=== PATIENT | male | born 1975 | race Caucasian/White ===

== ENCOUNTER 2016-08-10 09:16 | Emergency (ER) | payer OTHER ==
--- NOTE | 2016-08-10 09:33 | ED Physician Documentation ---
General Adult - HISTORIAN Historian: patient - HPI Chief Complaint: Skin Rash Onset: days ago Timing: still present Further Comments: yes (has) - ROS CONST: no problems. denies: fever - PAST HX Past History: none Other History: diabetes Type 2, other (shizophrenia) Surgeries/Procedures: none Allergies/Adverse Reactions: Allergies Allergy/AdvReac Type Severity Reaction Status Date / Time No Known Allergies Allergy Verified 11/12/15 21:25 - SOCIAL HX Smoking History: less than 1 pack/day Alcohol Use: none Drug Use: none - FAMILY HX Family History: Yes (DM) - VITAL SIGNS Vital Signs: Vital Signs Temp Pulse Resp BP Pulse Ox 148/85 11/13/15 00:16 - REVIEWED ASSESSMENTS Nursing Assessment Reviewed: Yes Vitals Reviewed: Yes General Adult Physical Exam - PHYSICAL EXAM GENERAL APPEARANCE: mild distress EENT: no signs of dehydration NECK: normal inspection RESPIRATORY: no resp distress, chest non-tender. No: wheezes, rales, rhonchi CVS: reg rate & rhythm, heart sounds normal, equal pulses, murmur (grade 2/6) EXTREMITIES: other (4cm erythema to the right elbow, mild swelling) NEURO: oriented X3, mood/affect nml Discharge Clincal Impression: Cellulitis Qualifiers: Site of cellulitis: extremity Site of cellulitis of extremity: upper extremity Laterality: right Qualified Code(s): L03.113 - Cellulitis of right upper limb Additional Instructions: Take doxycycline twice a day. Watch for increasing swelling to the elbow area. Watch blood sugars closely. Condition: Stable Disposition: HOME, SELF-CARE Decision to Admit: NO Date of Decison to Admit: 08/10/16 Decision Time: 09:48
[2016-08-10 09:56] VITALS: BP 159/93
== END 2016-08-10 09:48 | disposition home or self-care (01) ==
LOC: ED 09:16
DX: L03.113 Cellulitis of right upper limb (principal); F17.210 Nicotine dependence, cigarettes, uncomplicated
CPT/HCPCS: 99283

== ENCOUNTER 2016-10-11 20:39 | Emergency (ER) | payer OTHER ==
[2016-10-11] MEDS: Lidocaine 1% 5ml(IM or SUTURE)(PAIN CLINIC) IJ ONE (21:17)
[2016-10-11] MEDS: cefTRIAXone SODIUM 1 GM VIAL IM ONE (21:17)
--- NOTE | 2016-10-11 21:35 | ED Physician Documentation ---
General Adult - HISTORIAN Historian: patient, spouse - HPI Stated Complaint: puncture wound Chief Complaint: General Adult Onset: other (Tuesday) Timing: worse Further Comments: yes (41 year old male patient presents with complaints of left foot pain. Patient states he stepped on a jon nail. Patient reports being out of metformin and lisinopril since Tuesday. Rates pain /) - ROS CONST: no problems EYES/ENT: none CVS/RESP: none GI/: none MS/SKIN/LYMPH: none NEURO/PSYCH: difficulty walking (due to pain). denies: headache, dizziness - PAST HX Past History: hypertension Other History: diabetes Type 2, other (sleep apnea, depression) Allergies/Adverse Reactions: Allergies Allergy/AdvReac Type Severity Reaction Status Date / Time No Known Allergies Allergy Verified 10/11/16 21:00 Home Medications: Ambulatory Orders Medication Instructions Recorded Quetiapine Fumarate [Seroquel] 50 mg PO DAILY 08/10/16 Metformin HCl [Glucophage] 500 mg PO BID 10/11/16 PARoxetine HCL [Paxil] 20 mg PO DAILY 10/11/16 Prazosin HCl [Minipress] 2 mg PO DAILY 10/11/16 Sulfamethoxazole/Trimethoprim 1 each PO BID #20 tab 10/11/16 [Bactrim Ds] - SOCIAL HX Smoking History: chew - FAMILY HX Family History: No - VITAL SIGNS Vital Signs: Vital Signs Temp Pulse Resp BP Pulse Ox 99.4 F 86 20 137/86 95 10/11/16 21:07 10/11/16 21:07 10/11/16 21:07 10/11/16 21:07 10/11/16 21:07 - REVIEWED ASSESSMENTS Nursing Assessment Reviewed: Yes Vitals Reviewed: Yes Progress - Progress Progress: Soaked left foot and cleaned black dirt, now able to assess erythema area. Discussed non-compliance of medications. Patient states he has refills at the pharmacy, but he has not picked them up. Instructed patient to pickle solution maker medications and restart his lisinopril and metformin. Patient report history of "murmur", has never had cardiology work up. Patient medicated for pain with stadol and toradol IM. Discharged with [place] 2 tabs for home Reviewed discharge instructions with patient and , verbalized understanding. Strongly encouraged follow up with Dr Brooks for re-evaluation, explained if foot did not improve patient would need IV antibiotics. Will start bactrim DS bid x 10 days, prn [place] for pain. ED Results Lab/Radiology - Orders Orders: ED Orders Category Date Time Status Butorphanol Tartrate [Stadol] Med 10/11/16 21:32 Once 1 mg IM NOW ONE HYDROcodone /APAP 5/325 [[place] 5/325] Med 10/11/16 21:32 Once 2 each PO NOW ONE Ketorolac Tromethamine [Toradol] Med 10/11/16 21:32 Once 60 mg IM NOW ONE Lidocaine 1% 5ml(IM or SUTURE) [Xylocaine] Med 10/11/16 21:02 Discontinued 50 mg IJ NOW ONE cefTRIAXone SODIUM [Rocephin] Med 10/11/16 21:02 Discontinued 1 gm IM NOW ONE General Adult Physical Exam - PHYSICAL EXAM GENERAL APPEARANCE: moderate distress EENT: eye inspection normal, EOM palsy RESPIRATORY: no resp distress, chest non-tender, breath sounds normal CVS: reg rate & rhythm, equal pulses, no murmur, no gallop, PMI nml, no JVD, no friction rub, murmur (aortic 4/6) ABDOMEN: soft, no organomegaly, normal bowel sounds, no abdominal bruit, no distension, other (morbid obesity) SKIN: normal color, warm/dry, NR, INT, PAL, DR EXTREMITIES: non-tender, normal range of motion, no evidence of injury, no edema , other (left foot - foot black and dirty; soaked and cleaned - planter aspect with puncture wound noted, erythema 5 x 8 cm area, no drainage from puncture, very tender to light touch; ) NEURO: oriented X3, CN's nml as tested, motor nml, sensation nml, mood/affect nml Discharge Clincal Impression: Cellulitis of foot Prescriptions: Sulfamethoxazole/Trimethoprim [Bactrim Ds] 1 each PO BID #20 tab Referrals: Primary Doctor,No [Primary Care Provider] - 2 Days Additional Instructions: Clean the wound twice a day with hibiclens and rinse with water clean away any scabbed area Cover with non-adherent bandage if able. clean up helper banquet ALL of your prescription in the morning - restart your lisinopril and metformin; start your antibiotic Make a follow up appointment with Dr Brooks for Tuesday. You need a referral to Cardiology. Home Medications: Ambulatory Orders Quetiapine Fumarate [Seroquel] 50 mg PO DAILY 08/10/16 Metformin HCl [Glucophage] 500 mg PO BID 10/11/16 PARoxetine HCL [Paxil] 20 mg PO DAILY 10/11/16 Prazosin HCl [Minipress] 2 mg PO DAILY 10/11/16 Sulfamethoxazole/Trimethoprim [Bactrim Ds] 1 each PO BID #20 tab 10/11/16 Condition: Stable Disposition: 01 HOME, SELF-CARE Decision to Admit: NO Decision Time: 21:33
[2016-10-11] MEDS: BUTORPHANOL TARTRATE 2 MG/ML VIAL IM ONE (21:50)
[2016-10-11] MEDS: DIPH,PERTUSS(ACELL),TET VAC/PF 0.5 ML DISP.SYRIN IM ONE (21:51)
[2016-10-11] MEDS: HYDROcodone /APAP 5/325 1 EACH TABLET PO ONE (21:51)
[2016-10-11] MEDS: KETOROLAC TROMETHAMINE 60 MG/2 ML VIAL IM ONE (21:51)
[2016-10-11 22:02] VITALS: BP 123/72
== END 2016-10-11 22:01 | disposition home or self-care (01) ==
LOC: ED 20:39
DX: L03.116 Cellulitis of left lower limb (principal)
CPT/HCPCS: 90715; A9270; J0595; J0696; J1885; 90471; 96372; 99283

== ENCOUNTER 2016-12-18 10:10 | Emergency (ER) | payer OTHER ==
--- NOTE | 2016-12-18 10:55 | ED Physician Documentation ---
General Adult - HISTORIAN Historian: patient - HPI Chief Complaint: General Adult Onset: days ago (4 days) Timing: still present Further Comments: yes (Patient states that he burned in bucal surface of left lower gum area. Seems to be getting worse.) - ROS CONST: no problems. denies: fever, chills - PAST HX Past History: hypertension, other (sleep apnea, schizophrenia) Other History: diabetes Type 2, other (schizophrenia) Surgeries/Procedures: none Immunizations: tetanus Allergies/Adverse Reactions: Allergies Allergy/AdvReac Type Severity Reaction Status Date / Time No Known Allergies Allergy Verified 12/18/16 10:52 Home Medications: Ambulatory Orders Medication Instructions Recorded Quetiapine Fumarate [Seroquel] 50 mg PO DAILY 08/10/16 Metformin HCl [Glucophage] 500 mg PO BID 10/11/16 PARoxetine HCL [Paxil] 20 mg PO DAILY 10/11/16 Prazosin HCl [Minipress] 2 mg PO DAILY 10/11/16 - SOCIAL HX Smoking History: non-smoker, chew Alcohol Use: none Drug Use: none - FAMILY HX Family History: Yes - VITAL SIGNS Vital Signs: Vital Signs Temp Pulse Resp BP Pulse Ox 123/72 10/11/16 22:01 - REVIEWED ASSESSMENTS Nursing Assessment Reviewed: Yes Vitals Reviewed: Yes General Adult Physical Exam - PHYSICAL EXAM GENERAL APPEARANCE: mild distress EENT: eye inspection normal, pharynx normal, other (patient has an area associated with left lower canaine tooth with exposure of the tooth 3-4mm below gum line, mild erythema noted.) RESPIRATORY: no resp distress, chest non-tender, breath sounds normal. No: wheezes, rales, rhonchi CVS: reg rate & rhythm, equal pulses, murmur (garde 2/6) NEURO: oriented X3, mood/affect nml, cognition normal Discharge Clincal Impression: First degree burn of buccal mucosa Prescriptions: Penicillin V Potassium [Pen V K] 500 mg PO QID #40 tablet Referrals: Primary Doctor,No [Primary Care Provider] - 2 Days Additional Instructions: Rinse mouth with salt water several times a day. Contact a dentist for further treatment. Take penicillin as directed. Home Medications: Ambulatory Orders Quetiapine Fumarate [Seroquel] 50 mg PO DAILY 08/10/16 Metformin HCl [Glucophage] 500 mg PO BID 10/11/16 PARoxetine HCL [Paxil] 20 mg PO DAILY 10/11/16 Prazosin HCl [Minipress] 2 mg PO DAILY 10/11/16 Condition: Stable Decision to Admit: NO Date of Decison to Admit: 12/18/16 Decision Time: 10:48
[2016-12-18 11:02] VITALS: BP 120/75
== END 2016-12-18 11:01 ==
LOC: ED 10:10
DX: T28.0XXA Burn of mouth and pharynx, initial encounter (principal); X10.1XXA Contact with hot food, initial encounter; Y93.9 Activity, unspecified; Y99.9 Unspecified external cause status
CPT/HCPCS: 99283

== ENCOUNTER 2018-01-21 11:52 | Inpatient (IN) | payer OTHER ==
--- NOTE | 2018-01-21 11:54 | ED Physician Documentation ---
General Adult - HISTORIAN Historian: patient - HPI Stated Complaint: dental pain Chief Complaint: Dental Pain Onset: days ago (1) Timing: still present Severity: mild Further Comments: yes (He states he has had dental pain the past but today he was biting down on a sucker and broke his tooth. The pain is what brings him to the ER. He did take Ibuprofen at home (he is not sure of the dose) He states he also has a sore on his right toe that has "been there for a while I was going to see my Dr about it next week but you all can just check it out" He also states his PCP started him on a new med for his cholesterol a few weeks ago and he has had Nausea and vomiting since. Denies a fever. He also reports for the last week or more "I just dont feel good" . He states he had felt dizzy. He reports he has pain in his tooth .) Last known Well Code/Unknown Code: Unknown - ROS CONST: no problems CVS/RESP: denies: chest pain, shortness of breath, cough GI/: nausea, diarrhea MS/SKIN/LYMPH: denies: calf pain, neck pain, joint pain, leg swelling, rash NEURO/PSYCH: headache, dizziness. denies: fainting, difficulty walking - PAST HX Past History: hypertension, other (DM 2 ) Surgeries/Procedures: none Immunizations: UTD Allergies/Adverse Reactions: Allergies Allergy/AdvReac Type Severity Reaction Status Date / Time No Known Allergies Allergy Verified 01/21/18 12:13 Home Medications: Ambulatory Orders Medication Instructions Recorded Atorvastatin Calcium 20 mg PO D 01/21/18 Gabapentin 300 mg PO TID 01/21/18 Glimepiride [Amaryl] 4 mg PO AM 01/21/18 LORazepam [Ativan] 1 mg PO HS 01/21/18 Lisinopril/Hydrochlorothiazide 1 tab PO D 01/21/18 [Zestoretic] - SOCIAL HX Smoking History: cigarettes Alcohol Use: none Drug Use: none - FAMILY HX Family History: No - VITAL SIGNS Vital Signs: Vital Signs Temp Pulse Resp BP Pulse Ox 120/75 12/18/16 11:00 - REVIEWED ASSESSMENTS Nursing Assessment Reviewed: Yes Vitals Reviewed: Yes Progress - Progress Progress: 1315: Discussed case with Dr Philippe who would like to admit pt for fluids and monitor labs repeat in am. Pt is agreeable. DG 1335: Walking in hallway to Xray . No dizziness. No complaints DG ED Results Lab/Radiology - Radiology Radiology Impressions: 3 views of the right foot Clinical history: Right 3rd digit pain Findings: No acute fracture dislocation is identified. Alignment is normal. Impression: Negative Electronically signed on Jan 21, 2018 12:59:40 PM CDT by: Rodolfo De Oliveira HISTORY: 42-year-old male with wheezing and cough. COMPARISON: None available. TECHNIQUE: PA and lateral views of the chest were performed. FINDINGS: No pneumothorax, consolidative infiltrates, pleural effusions, or pulmonary edema. There may be calcified granulomas in the left [id number] lung. Azygos lobe is incidentally noted. The heart is not enlarged. IMPRESSION: No acute cardiopulmonary process identified. Electronically signed on Jan 21, 2018 1:49:13 PM CDT by: Velasquez Hylton General Adult Physical Exam - PHYSICAL EXAM GENERAL APPEARANCE: no distress EENT: eye inspection normal, ENT inspection normal, pharynx normal, no signs of dehydration NECK: normal inspection RESPIRATORY: no resp distress, chest non-tender, wheezes (RUL SANTO ) CVS: reg rate & rhythm, heart sounds normal, equal pulses, no murmur ABDOMEN: soft, normal bowel sounds, no distension, non-tender BACK: normal inspection SKIN: warm/dry, normal color, other (area on 3rd toe right foot darker than skin color 2 cm round area on tip of toe. No drainge. No loss of sensation ) EXTREMITIES: non-tender, normal range of motion, no evidence of injury, no edema NEURO: oriented X3, CN's nml as tested, motor nml, sensation nml, mood/affect nml, cognition normal Discharge Clincal Impression: Acute kidney failure Qualifiers: Acute renal failure type: unspecified Qualified Code(s): N17.9 - Acute kidney failure, unspecified Referrals: Primary Doctor,No [Primary Care Provider] - 2 Days Condition: Fair Disposition: ADMITTED INPATIENT Decision to Admit: [id number] Date of Decison to Admit: 01/21/18 Decision Time: 13:15
[2018-01-21] MEDS ORDERED: 0.9 % SODIUM CHLORIDE 1,000 ML IV SCH (12:30)
[2018-01-21] MEDS ORDERED: 0.9 % SODIUM CHLORIDE 1,000 ML IV ONE ×4 (12:31→23:13)
[2018-01-21 12:35] LABS: BASOPHILS % 0.6 (0.0-1.5); EOSINOPHILS % 3.5 % (0.0-6.8); MEAN CORPUSCULAR HEMOGLOBIN 30.1 pg (28.0-34.0); MEAN CORPUSCULAR VOLUME 87.2 fl (80.0-100.0); MONOCYTES % 4.5 % (0.0-11.0); NEUTROPHILS # 6.9 # k/uL (1.4-7.7)
[2018-01-21 12:58] LABS: eGFR (African) 20; eGFR (Non-African) 17
[2018-01-21] MEDS ORDERED: ACETAMINOPHEN 500 MG TABLET PO ONE (13:29)
[2018-01-21] MEDS: 0.9 % SODIUM CHLORIDE 1,000 ML IV SCH ×3 (14:12→23:16)
--- NOTE | 2018-01-21 17:21 | History and Physical Report ---
History of Present Illnes - History of Present Illness Reason for Visit: Acute renal failure History of Present Illness: 42 year old male who has had intractable nausea/vomiting and diarrhea for the past three days. He has no ill contacts. He has not been able to keep anything down. He broke a tooth today and that was his reason fro coming to the ER. He was hypotensive, and labs showed him to be in acute renal failure with a BUN/CR of 62/4.2. Previous renal labs were all normal. He is admitted for fluid resuscitation, and we will check labs with likely need for at least a couple nights in the hospital for correction of renal failure. - Past Medical History Cardiac: HTN, Hyperlipidemia, Other (PAD) Pulmonary: COPD Gastrointestinal: denies: Other Hepatobiliary: denies: Other Psych: Bipolar, Schizophrenia Musculoskeletal: Chronic low back pain Rheumatologic: denies: Fibromyalgia Infectious Disease: denies: Other ENT: Other (Dental caries) Renal/: Acute renal failure Endocrine: Diabetes, Other (Morbid obesity) Dermatology: denies: Other - Past Surgical History Past Surgical History: Other (ORIF, left ankle, right shoulder arthroscopy) - Past Social History Smoke: 1 pack per day Alcohol: Occassional Drugs: None (Denies) Lives: With Family Domestic Violence: Negative - Health Maintenance Health Maintenance: Cholesterol Influenza Vaccine: Current for this Influenza Season Pneumonia Vaccine: Yes Resuscitation Status: Full Code - Unable to Obtain History Unable to Obtain: No Review of Systems - Review of Systems Constitutional: Weakness, Malaise. negative: Fever, Chills Eyes: negative: pain ENT: Mouth Pain (due to recently broken tooth). negative: Ear Pain, Ear Discharge Respiratory: negative: Cough, Dry, Shortness of Breath Cardiovascular: negative: Chest Pain Gastrointestinal: Nausea, Vomiting, Diarrhea. negative: Abdominal Pain Genitourinary: negative: Dysuria Musculoskeletal: negative: Neck Pain, Shoulder Pain Skin: negative: Rash, Lesions Neurological: Weakness, Incoordination, Confusion - Medications/Allergies Allergies/Adverse Reactions: Allergies Allergy/AdvReac Type Severity Reaction Status Date / Time No Known Allergies Allergy Verified 01/21/18 12:13 Home Medications: Home Medications Atorvastatin Calcium 20 mg PO D 01/21/18 Gabapentin 300 mg PO TID 01/21/18 Glimepiride [Amaryl] 4 mg PO AM 01/21/18 LORazepam [Ativan] 1 mg PO HS 01/21/18 Lisinopril/Hydrochlorothiazide [Zestoretic] 1 tab PO D 01/21/18 Current Inpatient Medications: Current Inpatient Medications Miscellaneous (Chem Sticks) 1 each CHEMX3 [facility] Exam - Exam Vital Signs: Vital Signs (72 hours) 01/21/18 14:55 Pulse Rate [ 112 H Right Pulse ox] Respiratory 24 Rate Blood Pressure 75/45 [Left Arm] General: Alert, Oriented to Person, Oriented to Place, Oriented to Time, Cooperative, Mild distress, Obese HEENT: Atraumatic, PERRLA, Poor Dentition Neck: No: Stridor, Rigidity Lungs: Clear to auscultation, Normal air movement, Speaks full Sentences. No: Respiratory Distress Cardiovascular: Regular rate, Normal S1, Normal S2 Murmur: No: Systolic Murmur Murmur Location: No: [place] Abdomen: Normal bowel sounds, Soft, No tenderness Genitourinary: No: Right Inguinal Hernia, Left Inguinal Hernia Male Genitourinary: No: Other Female Genitourinary: No: Other Integumentary: Normal, [place], Warm, Other (open ulcer on right distal third toe) Extremities: No clubbing, No cyanosis, Other (scar from recent ORIF or right ankle) Neurological: Normal speech, Strength Equal Bilat Psych/Mental Status: Mental status NL Assessment/Plan - Assessment/Plan (1) Diabetes mellitus Status: Acute Current Visit: Yes Qualifiers: Diabetes mellitus type: type 2 Diabetes mellitus complication status: with circulatory complication Diabetes mellitus complication detail: with peripheral angiopathy without gangrene Assessment: Check AC/HS accuchecks (2) Obesity Status: Acute Current Visit: Yes Qualifiers: Obesity type: due to excess calories Obesity classification: adult class 3 (BMI >= 40) Serious obesity comorbidity presence: unspecified whether serious comorbidity present Body mass index: BMI 50.0-59.9 Qualified Code(s): E66.01 - Morbid (severe) obesity due to excess calories; Z68.43 - Body mass index (BMI) 50-59.9 , adult; Z68.43 - Body mass index (BMI) 50-59.9 , adult; Z68.43 - Body mass index (BMI) 50-59.9 , adult; Z68.43 - Body mass index (BMI) 50-59.9 , adult Assessment: Chronic (3) Dehydration Status: Acute Current Visit: Yes Assessment: Continue fluid resuscitation (4) Acute kidney failure Status: Acute Current Visit: Yes Qualifiers: Acute renal failure type: unspecified Qualified Code(s): N17.9 - Acute kidney failure, unspecified Assessment: Due to dehydration Plan: Continue fluid resuscitation Check labs in am VTE Assessment - RISK FACTOR SCORE VTE RISK FACTOR SCORES: AGE 40-60 YEARS, SMOKER - RISK VTE MODERATE RISK: SCORE OF 2 (RISK PROXIMAL DVT 2-4%) PROPHYAXIS NEEDED ( Started Lovenox)
[2018-01-21 17:28] VITALS: BMI 42.5
[2018-01-21] MEDS ORDERED: ACETAMINOPHEN WITH CODEINE 300MG/30MG TABLET PO PRN (17:43)
--- NOTE | 2018-01-21 18:22 | Diagnostic Imaging Report ---
KYLE TAYLOR [facility] [address] [facility] [address] [address] Report Submission Date: Jan 21, 2018 12:59:40 PM CDT Patient Study Name: NAYAN MORTENSEN Date: Jan 21, 2018 12:41:43 PM CDT Modality Type: DX Gender: M Description: LOWER EXTREMITY : 75 Institution: [facility] Physician: KYLE TAYLOR 3 views of the right foot Clinical history: Right 3rd digit pain Findings: No acute fracture dislocation is identified. Alignment is normal. Impression: Negative Electronically signed on Jan 21, 2018 12:59:40 PM CDT by: Rodolfo MULLER
--- NOTE | 2018-01-21 18:23 | Diagnostic Imaging Report ---
KYLE TAYLOR [facility] [address] [facility] [id number] Report Submission Date: Jan 21, 2018 1:49:13 PM CDT Patient Study Name: NAYAN MORTENSEN Date: Jan 21, 2018 1:25:46 PM CDT Modality Type: DX Gender: M Description: CHEST : 75 Institution: [facility] Physician: KYLE TAYLOR HISTORY: 42-year-old male with wheezing and cough. COMPARISON: None available. TECHNIQUE: PA and lateral views of the chest were performed. FINDINGS: No pneumothorax, consolidative infiltrates, pleural effusions, or pulmonary edema. There may be calcified granulomas in the left [id number] lung. Azygos lobe is incidentally noted. The heart is not enlarged. IMPRESSION: No acute cardiopulmonary process identified. Electronically signed on Jan 21, 2018 1:49:13 PM CDT by: Velasquez MULLER
[2018-01-21] MEDS: ENOXAPARIN SODIUM 30 MG/0.3 ML DISP.SYRIN SQ SCH (18:42)
[2018-01-21] MEDS ORDERED: ACETAMINOPHEN WITH CODEINE 300MG/30MG TABLET PO ONE (19:54)
[2018-01-21] MEDS ORDERED: QUEtiapine FUMARATE 25 MG TABLET PO ONE (21:50)
[2018-01-21] MEDS: QUEtiapine FUMARATE 25 MG TABLET PO SCH (22:03)
[2018-01-21] MEDS ORDERED: HYDROcodone /APAP 5/325 1 EACH TABLET PO PRN (23:10)
[2018-01-21] MEDS: HYDROcodone /APAP 5/325 1 EACH TABLET PO PRN (23:21)
[2018-01-22] MEDS ORDERED: 0.9 % SODIUM CHLORIDE 1,000 ML IV ONE ×3 (03:58→19:12)
[2018-01-22] MEDS: 0.9 % SODIUM CHLORIDE 1,000 ML IV SCH ×3 (04:05→23:53)
[2018-01-22] MEDS: HYDROcodone /APAP 5/325 1 EACH TABLET PO PRN ×3 (07:29→20:10)
[2018-01-22 07:36] LABS: APPEARANCE,URINE CLEAR (CLEAR); COLOR,URINE YELLOW (YELLOW); OCCULT BLOOD,URINE NEGATIVE (NEGATIVE); UROBILINOGEN URINE 0.2 Eu (0.2-1.0)
[2018-01-22] MEDS: GLIMEPIRIDE 2 MG TABLET PO SCH (07:40)
[2018-01-22] MEDS: GABAPENTIN 100 MG CAPSULE PO SCH ×4 (07:44→17:41)
[2018-01-22 12:12] LABS: MEAN CORPUSCULAR HEMOGLOBIN 29.7 pg (28.0-34.0); MEAN CORPUSCULAR VOLUME 88.7 fl (80.0-100.0)
[2018-01-22 12:26] LABS: eGFR (African) 47; eGFR (Non-African) 39
--- NOTE | 2018-01-22 17:04 | Inpatient Progress Note ---
Subjective - Required Recertification Statement I anticipate X number of days because-include discharge plan: 1 - Review of Systems Events since last encounter: Addi' s renal function has improved. He continues to eat a remarkable amount of food, however despite this his blood sugars are farily well controlled. General: Denies: Chills, Night Sweats, Fatigue HEENT: Denies: Head Aches Pulmonary: Denies: Dyspnea, Cough Cardiovascular: Denies: Chest Pain Gastrointestinal: Denies: Nausea, Vomiting Genitourinary: Denies: Dysuria Musculoskeletal: Denies: Neck Pain, Shoulder Pain Neurological: Weakness. Denies: Incoordination Objective - Exam Vitals and I&O: Vital Signs Temp 98.2 F 01/22/18 10:00 Pulse 92 H 01/22/18 02:00 Resp 18 01/22/18 10:00 BP 116/50 01/22/18 10:00 Pulse Ox 97 01/22/18 10:00 Intake & Output 01/21/18 01/22/18 01/22/18 23:59 11:59 23:59 Intake Total 1160 3600 1440 Balance 1160 3600 1440 Weight 154.221 kg Intake: Oral 1160 1200 1440 Other 2400 Other: Voiding Method Toilet Toilet # Voids 3 2 General: Alert, Oriented to Person, Oriented to Place, Oriented to Time, Obese HEENT: Atraumatic, PERRLA, EOMI Neck: Supple Lungs: Clear to auscultation, Normal air movement. No: Respiratory Distress Cardiovascular: Regular rate, Normal S1, Normal S2 Abdomen: No: Normal bowel sounds Extremities: No clubbing, No cyanosis, No edema Skin: Normal, [place], Warm Neurological: Normal gait, Normal speech Psych/Mental Status: Mental status NL - Results Results: Laboratory Results WBC 6.90 K/ul (4.00-12.00) 01/22/18 12:09 RBC 3.82 M/ul (3.90-5.20) L 01/22/18 12:09 Hgb 11.4 g/dL (12.0-18.0) L 01/22/18 12:09 Hct 33.9 % (37.0-53.0) L 01/22/18 12:09 MCV 88.7 fl (80.0-100.0) 01/22/18 12:09 MCH 29.7 pg (28.0-34.0) 01/22/18 12:09 MCHC 33.5 g/dL (30.0-36.0) 01/22/18 12:09 RDW 14.1 % (11.3-14.3) 01/22/18 12:09 Plt Count 150 K/mm3 (130-400) 01/22/18 12:09 Neut % (Auto) 70.1 % (39.0-79.0) 01/21/18 12:30 Lymph % (Auto) 20.4 % (16.0-50.0) 01/21/18 12:30 Barron % (Auto) 4.5 % (0.0-11.0) 01/21/18 12:30 Eos % (Auto) 3.5 % (0.0-6.8) 01/21/18 12:30 Baso % (Auto) 0.6 (0.0-1.5) 01/21/18 12:30 Neut # (Auto) 6.9 # k/uL (1.4-7.7) 01/21/18 12:30 Lymph # (Auto) 2.0 # k/uL (0.6-4.0) 01/21/18 12:30 Barron # (Auto) 0.4 # k/uL (0.0-0.9) 01/21/18 12:30 Eos # (Auto) 0.3 # k/uL (0.0-0.6) 01/21/18 12:30 Baso # (Auto) 0.1 # k/uL (0.0-0.5) 01/21/18 12:30 Reactive Lymphs % 1.0 % (0.0-5.0) 01/21/18 12:30 Reactive Lymphs # 0.1 # k/uL (0.0-0.8) 01/21/18 12:30 Sodium 140 mmol/L (136-145) 01/22/18 12:08 Potassium 4.4 mmol/L (3.5-5.1) 01/22/18 12:08 Chloride 109 mmol/L (98-107) H 01/22/18 12:08 Carbon Dioxide 22 mmol/L (22-30) 01/22/18 12:08 BUN 55 mg/dL (9-20) H 01/22/18 12:08 Creatinine 2.00 mg/dL (0.66-1.25) H 01/22/18 12:08 Estimated Creat Clear 104 01/22/18 12:08 Est GFR ( Amer) 47 (60-) L 01/22/18 12:08 Est GFR (Non-Af Amer) 39 (60-) L 01/22/18 12:08 Glucose 142 mg/dL (74-106) H 01/22/18 12:08 Calcium 8.7 mg/dL (8.4-10.2) 01/22/18 12:08 Total Bilirubin < 0.1 mg/dL (0.2-1.3) L 01/22/18 12:08 AST 33 U/L (15-46) 01/22/18 12:08 ALT 36 U/L (13-69) 01/22/18 12:08 Alkaline Phosphatase 64 U/L (38-126) 01/22/18 12:08 NT-Pro-B Natriuret Pep 126.4 pg/mL (15.0-125.0) H 01/21/18 12:30 Total Protein 6.5 g/dL (6.3-8.2) 01/22/18 12:08 Albumin 3.7 g/dL (3.5-5.0) 01/22/18 12:08 Urine Color Yellow (YELLOW) 01/21/18 Unknown Urine Appearance Clear (CLEAR) 01/21/18 Unknown Urine pH 5.0 (5.0 - 8.0) 01/21/18 Unknown Ur Specific [place] >=1.030 (1.010-1.030) H 01/21/18 Unknown Urine Protein 1+ mg/dL (NEGATIVE) H 01/21/18 Unknown Urine Ketones Negative mg/dL (NEGATIVE) 01/21/18 Unknown Urine Occult Blood Negative (NEGATIVE) 01/21/18 Unknown Urine Nitrite Negative (NEGATIVE) 01/21/18 Unknown Urine Bilirubin 2+ (NEGATIVE) H 01/21/18 Unknown Urine Urobilinogen 0.2 Eu (0.2-1.0) 01/21/18 Unknown Ur Leukocyte Esterase Negative (NEGATIVE) 01/21/18 Unknown Urine Glucose Negative mg/dL (NEGATIVE) 01/21/18 Unknown Ethyl Alcohol < 10.0 mg/dL (0.0-10.0) 01/21/18 12:30 Assessment/Plan - Assessment/Plan (1) Diabetes mellitus Status: Acute Current Visit: Yes Qualifiers: Diabetes mellitus type: type 2 Diabetes mellitus complication status: with circulatory complication Diabetes mellitus complication detail: with peripheral angiopathy without gangrene Assessment: Surprisingly good control (2) Obesity Status: Acute Current Visit: Yes Qualifiers: Obesity type: due to excess calories Obesity classification: adult class 3 (BMI >= 40) Serious obesity comorbidity presence: unspecified whether serious comorbidity present Body mass index: BMI 50.0-59.9 Qualified Code(s): E66.01 - Morbid (severe) obesity due to excess calories; Z68.43 - Body mass index (BMI) 50-59.9 , adult; Z68.43 - Body mass index (BMI) 50-59.9 , adult; Z68.43 - Body mass index (BMI) 50-59.9 , adult; Z68.43 - Body mass index (BMI) 50-59.9 , adult Assessment: Chronic, worsened by excess calories (3) Dehydration Status: Acute Current Visit: Yes Assessment: Improved (4) Acute kidney failure Status: Acute Current Visit: Yes Qualifiers: Acute renal failure type: unspecified Qualified Code(s): N17.9 - Acute kidney failure, unspecified Assessment: BUN/creatinine coming down Plan: Continue IVF Recheck BMP in the am, I suspect he will be able to go home in the morning.
[2018-01-22] MEDS: ENOXAPARIN SODIUM 30 MG/0.3 ML DISP.SYRIN SQ SCH (17:41)
[2018-01-22] MEDS: QUEtiapine FUMARATE 25 MG TABLET PO SCH (20:09)
[2018-01-22] MEDS ORDERED: QUEtiapine FUMARATE 25 MG TABLET PO SCH (21:00)
[2018-01-23] MEDS: HYDROcodone /APAP 5/325 1 EACH TABLET PO PRN ×3 (02:20→13:30)
[2018-01-23] MEDS ORDERED: 0.9 % SODIUM CHLORIDE 1,000 ML IV ONE (04:07)
[2018-01-23] MEDS: 0.9 % SODIUM CHLORIDE 1,000 ML IV SCH (04:23)
[2018-01-23] MEDS: GLIMEPIRIDE 2 MG TABLET PO SCH (07:25)
[2018-01-23 07:50] LABS: eGFR (African) > 60; eGFR (Non-African) > 60
[2018-01-23] MEDS: GABAPENTIN 100 MG CAPSULE PO SCH ×2 (07:57→13:04)
[2018-01-23 13:30] VITALS: BP 140/71
--- NOTE | 2018-01-23 15:19 | Discharge Summary ---
DATE OF ADMISSION: January 21, 2018 DATE OF DISCHARGE: January 23, 2018 DIAGNOSES ON THIS HOSPITALIZATION: 1. Acute renal failure. 2. Diabetes mellitus type 2. 3. Obesity. 4. Hypotension. SUMMARIZATION OF ADMISSION HISTORY AND PHYSICAL: This is a 42-year-old male who presented to the emergency department after feeling just generally very weak. He had broken a tooth prior to coming in; however, when labs were done in the emergency department, he was noted to be in acute renal failure with a BUN of 62 and creatinine of 4.2. As a result, he was admitted for fluid resuscitation and monitoring of his renal function. HOSPITAL COURSE: He was admitted. We started him on a fairly aggressive fluid resuscitation. He did eat actually a remarkable amount of food. He would order a pizza at least every day from [employer] and eat the entire thing in conjunction with all the food that he was given through the hospital. He was by discharge date, eating and drinking significantly better, as the fluids were discontinued because he was beginning to have a little bit of edema. His labs had actually improved remarkably from a BUN of 62 and a creatinine of 4.2 to a BUN of 30 and a creatinine of 1.10. He was discharged home with continuation of all of his regular medications. He was really strongly cautioned to increase his fluid intake to at least 64 ounces per day. He will follow up with his primary care physician in the next week. YOHANA
== END 2018-01-23 13:50 | disposition home or self-care (01) | DRG 684 ==
LOC: ED 11:52 → SOUTH 14:28
PROVIDERS: ADMIT Family Medicine; ATTEND Family Medicine
DX: N17.9 Acute kidney failure, unspecified (principal); E11.9 Type 2 diabetes mellitus without complications; I95.9 Hypotension, unspecified; E66.9 Obesity, unspecified
CPT/HCPCS: 71046; 73630; 80048; 80053; 80320; 81002; 83880; 85025; 85027; 93005; A9270; J1650; J7030; 96365; 96366; 99222; 99232; 99238; G0480; S1016

== ENCOUNTER 2018-02-05 06:05 | Emergency (ER) | payer OTHER ==
--- NOTE | 2018-02-05 06:38 | ED Physician Documentation ---
General Adult - HISTORIAN Historian: patient - VITAL SIGNS Vital Signs: Vital Signs Temp Pulse Resp BP Pulse Ox 140/71 01/23/18 13:29 <Lena Tapia - Last Filed: 02/05/18 06:38> - HPI Chief Complaint: General Adult Further Comments: yes (0700 Assumed care of patient who presents with complaints of 10/10 abdominal pain and diarrhea for the past 3 days. Patient assisted to bathroom became light headed and placed back in bed prior to my arrival. Lab pending, 1st Liter NS infusing. Patient awake, alert, pink, warm and dry. Denies any fever or chills. Old records reviewed.) - ROS CONST: recent illness (started 02/04/18 around 1400 after drinking "mountain dew slushy") EYES/ENT: none CVS/RESP: shortness of breath. denies: chest pain GI/: abdominal pain, nausea, diarrhea. denies: vomiting MS/SKIN/LYMPH: other (left foot pain) NEURO/PSYCH: headache, dizziness. denies: fainting, tingling, numbness, difficulty walking, difficulty with speech, anxiety, depression - PAST HX Past History: hypertension, other (HLD; January 2017 ARF - Cr 4.2) Other History: diabetes Type 2 - SOCIAL HX Smoking History: cigarettes - FAMILY HX Family History: No - VITAL SIGNS Vital Signs: Vital Signs Temp Pulse Resp BP Pulse Ox 97.8 F 108 H 20 77/36 93 02/05/18 06:06 02/05/18 06:06 02/05/18 06:06 02/05/18 06:06 02/05/18 06:06 - REVIEWED ASSESSMENTS Nursing Assessment Reviewed: Yes Vitals Reviewed: Yes <RYAN DAI - Last Filed: 02/05/18 12:23> - PAST HX Allergies/Adverse Reactions: Allergies Allergy/AdvReac Type Severity Reaction Status Date / Time norepinephrine Allergy Verified 02/05/18 08:57 Home Medications: Ambulatory Orders Medication Instructions Recorded Atorvastatin Calcium 20 mg PO D 01/21/18 Gabapentin 300 mg PO TID 01/21/18 Glimepiride [Amaryl] 4 mg PO AM 01/21/18 LORazepam [Ativan] 1 mg PO HS 01/21/18 Lisinopril/Hydrochlorothiazide 1 tab PO D 01/21/18 [Zestoretic] Progress - Progress Progress: Old records reviewed. Patient was admitted to [facility] in January 2018 for dehydration and ARF, CR 4.2; left AMA, has not followed up with primary care. Unable to complete troponin at this time, lab cartridges . Troponin sent out. Patient's weight 360 pounds. Over the weight limit for CT table. Start levophed drip for hypotension; HR down to 45-50, junctional rhythm; levophed stopped. Dopamine started. 08 Call to [facility] - reviewed case with Dr Carrillo. Will transfer to ER at [facility] stat for CT. EMS out on calls and transfer to [facility]. 0810 Request for [facility] helicopter - 35 min ETA; Air Vac checked for response time. Continuing to titrate Dopamine up for BP. 0835 Afib on monitor 130-150; patient remains awake, alert, pink, warm and dry. Called family on his cell phone. 0846 EKG #3 - Atrial Fib, rate 150 0900 No vasopressin or phenylephrine available for IV drip. Will not start epi at this time with significant Anion gap. 0920 [facility] at bedside. Will need blood cultures on arrival. - EKG/XRAY/CT EKG: rhythm (0722 Sinus arrhymia) - Additional EKG/XRAY/Consults EKG #2: rhythm (0745 after levophed - junctional rhythm on monitor; EKG with SR ) <RYAN DAI - Last Filed: 02/05/18 12:23> ED Results Lab/Radiology - Lab Results Lab Results: Lab Results 02/05/18 02/05/18 02/05/18 07:00 07:00 07:00 WBC 16.60 K/ul H K/ul (4.00-12.00) RBC 5.02 M/ul M/ul (3.90-5.20) Hgb 15.3 g/dL g/dL (12.0-18.0) Hct 45.3 % % (37.0-53.0) MCV 90.3 fl fl (80.0-100.0) MCH 30.6 pg pg (28.0-34.0) MCHC 33.9 g/dL g/dL (30.0-36.0) RDW 14.1 % % (11.3-14.3) Plt Count 319 K/mm3 K/mm3 (130-400) Neut % (Auto) 78.8 % % (39.0-79.0) Lymph % (Auto) 16.5 % % (16.0-50.0) [place] % (Auto) 3.3 % % (0.0-11.0) Eos % (Auto) 0.2 % % (0.0-6.8) Baso % (Auto) 0.5 (0.0-1.5) Neut # (Auto) 13.1 # k/uL H # k/uL (1.4-7.7) Lymph # (Auto) 2.7 # k/uL # k/uL (0.6-4.0) [place] # (Auto) 0.5 # k/uL # k/uL (0.0-0.9) Eos # (Auto) 0.0 # k/uL # k/uL (0.0-0.6) Baso # (Auto) 0.1 # k/uL # k/uL (0.0-0.5) Reactive Lymphs % 0.8 % % (0.0-5.0) Reactive Lymphs # 0.1 # k/uL # k/uL (0.0-0.8) Sodium 138 mmol/L mmol/L (136-145) Potassium 3.9 mmol/L mmol/L (3.5-5.1) Chloride 90 mmol/L L mmol/L (98-107) Carbon Dioxide 22 mmol/L mmol/L (22-30) BUN 54 mg/dL H mg/dL (9-20) Creatinine 8.40 mg/dL H mg/dL (0.66-1.25) Estimated Creat Clear 24 Est GFR ( Amer) 9 L (60 - ) Est GFR (Non-Af Amer) 7 L (60 - ) Glucose 299 mg/dL H mg/dL (74-106) Lactate 6.2 U/L H U/L (0.7-2.1) Calcium 11.6 mg/dL H mg/dL (8.4-10.2) Total Bilirubin 0.6 mg/dL mg/dL (0.2-1.3) AST 22 U/L U/L (15-46) ALT 28 U/L U/L (13-69) Alkaline Phosphatase 62 U/L U/L (38-126) Total Protein 8.7 g/dL H g/dL (6.3-8.2) Albumin 5.2 g/dL H g/dL (3.5-5.0) Ethyl Alcohol < 10.0 mg/dL mg/dL (0.0-10.0) - Radiology Radiology Impressions: AP chest CLINICAL HISTORY: Chest pain. FINDINGS: Examination of the chest single AP view with comparison to examination 2017 demonstrates patient be rotated. Lungs are hypoventilated but otherwise clear. Cardiovascular and mediastinal silhouettes are grossly unchanged. IMPRESSION: Rotated chest. Hypoventilation. Electronically signed on Feb 05, 2018 9:06:16 AM CDT by: Jamison Angel - Orders Orders: ED Orders Category Date Time Status Place IV Lock 1T Care 02/05/18 06:[address] IV Lock 1T Care 02/05/18 07:15 Active CHEST 1VIEW [RAD] Stat Exams 02/05/18 08:[address] ABD & PELVIS W/O CON Stat Exams 02/05/18 Ordered ALCOHOL MEDICAL USE ONLY Routine Lab 02/05/18 07:00 Completed CBC/PLATELET/DIFF Routine Lab 02/05/18 07:00 Completed CMP Routine Lab 02/05/18 07:00 Completed DRUG SCREEN URINE MEDICAL ONLY Routine Lab 02/05/18 Ordered LACTATE Stat Lab 02/05/18 07:00 Completed TROPONIN T (Joellen) Stat Lab 02/05/18 07:00 Received URINALYSIS Routine Lab 02/05/18 Ordered 0.9 % Sodium Chloride [Normal Saline] 1,000 ml Med 02/05/18 07:15 Discontinued IV NOW 0.9 % Sodium Chloride [Normal Saline] 1,000 ml Med 02/05/18 08:14 Discontinued IV NOW 0.9 % Sodium Chloride [Normal Saline] 1,000 ml Med 02/05/18 07:00 Ordered IV Q10H 0.9 % Sodium Chloride [Sodium Chloride] 250 ml Med 02/05/18 07:43 Discontinued IV .STK-MED Dopamine HCl in Dextrose 5 % [Dobutrex] Med 02/05/18 07:51 Discontinued 400 mg in 250 ml IV .STK-MED EKG WITH COMPARISON Stat Ther 02/05/18 07:20 Ordered <RYAN DAI - Last Filed: 02/05/18 12:23> General Adult Physical Exam - PHYSICAL EXAM GENERAL APPEARANCE: moderate distress EENT: eye inspection normal, pharynx normal, MREE, dry mucous membranes RESPIRATORY: no resp distress, chest non-tender, breath sounds normal CVS: reg rate & rhythm, heart sounds normal, equal pulses, no murmur, no gallop , PMI nml, no JVD, no friction rub ABDOMEN: soft, no organomegaly, normal bowel sounds, no abdominal bruit, no distension, tenderness (generalized), other (morbid obesity). No: McBurney's point tenderne, psoas, obturator sign BACK: normal inspection, no CVA tenderness SKIN: normal color, warm/dry, NR, INT, PAL, DR EXTREMITIES: non-tender, normal range of motion, no evidence of injury, no edema , J, ELECTRICIAN LOCOMOTIVE NEURO: oriented X3, motor nml, sensation nml, mood/affect nml <RYAN DAI - Last Filed: 02/05/18 12:23> Discharge <Lena Tapia - Last Filed: 02/05/18 06:38> Decision to Admit: NO Decision Time: 09:25 <RYAN DAI - Last Filed: 02/05/18 12:23> Clincal Impression: Hypotension Qualifiers: Hypotension type: hypotension due to hypovolemia Qualified Code(s): I95.89 - Other hypotension; E86.1 - Hypovolemia; E86.1 - Hypovolemia Sepsis Qualifiers: Sepsis type: sepsis due to unspecified organism Qualified Code(s): A41.9 - Sepsis, unspecified organism Abdominal pain Qualifiers: Abdominal location: generalized Qualified Code(s): R10.84 - Generalized abdominal pain Acute renal failure (ARF) Qualifiers: Acute renal failure type: unspecified Qualified Code(s): N17.9 - Acute kidney failure, unspecified Referrals: Abdirahman Philippe MD [Primary Care Provider] - 2 Days Condition: Critical Disposition: [facility] 234 BEDS AT THE [facility]
[2018-02-05] MEDS ORDERED: 0.9 % SODIUM CHLORIDE 1,000 ML IV ONE ×3 (06:54→08:14)
[2018-02-05] MEDS ORDERED: 0.9 % SODIUM CHLORIDE 1,000 ML IV SCH (07:00)
[2018-02-05 07:05] LABS: BASOPHILS % 0.5 (0.0-1.5); EOSINOPHILS % 0.2 % (0.0-6.8); MEAN CORPUSCULAR HEMOGLOBIN 30.6 pg (28.0-34.0); MEAN CORPUSCULAR VOLUME 90.3 fl (80.0-100.0); MONOCYTES % 3.3 % (0.0-11.0); NEUTROPHILS # 13.1 # k/uL (1.4-7.7)
[2018-02-05 07:20] LABS: eGFR (African) 9; eGFR (Non-African) 7
[2018-02-05] MEDS ORDERED: 0.9 % SODIUM CHLORIDE 250 ML IV ONE (07:43)
[2018-02-05] MEDS ORDERED: DOPAMINE HCL IN DEXTROSE IV ONE (07:51)
[2018-02-05] MEDS ORDERED: ONDANSETRON HCL/PF 4 MG/ 2ML VIAL ONE (08:30)
[2018-02-05] MEDS ORDERED: ONDANSETRON HCL/PF 4 MG/ 2ML VIAL IVP ONE (08:31)
[2018-02-05] MEDS ORDERED: MORPHINE SULFATE 2 MG/ML PREFILLED SYR ONE (08:44)
[2018-02-05] MEDS ORDERED: MORPHINE SULFATE 2 MG/ML PREFILLED SYR IVP ONE (08:45)
[2018-02-05 09:39] VITALS: BP 83/43
[2018-02-05 09:41] LABS: TROPONIN T 0.043 ng/mL (<0.010)
--- NOTE | 2018-02-05 10:57 | Diagnostic Imaging Report ---
RYAN DAI (JEWEL CORNER BRUSHING MACHINE OPERATOR) - ER [facility] [address] [facility] [address] [place], [place]. [address] Report Submission Date: Feb 05, 2018 9:06:16 AM CDT Patient Study Name: NAYAN MORTENSEN Date: Feb 05, 2018 8:28:53 AM CDT Modality Type: DX Gender: M Description: CHEST : 75 Institution: [facility] Physician: RYAN DAI (JEWEL CORNER BRUSHING MACHINE OPERATOR) - ER AP chest CLINICAL HISTORY: Chest pain. FINDINGS: Examination of the chest single AP view with comparison to examination 2017 demonstrates patient be rotated. Lungs are hypoventilated but otherwise clear. Cardiovascular and mediastinal silhouettes are grossly unchanged. IMPRESSION: Rotated chest. Hypoventilation. Electronically signed on Feb 05, 2018 9:06:16 AM CDT by: Jamison MULLER
[2018-02-06 07:40] LABS: ABG PH 7.38 (7.35-7.45)
[2018-02-06 07:41] LABS: ABG BASE EXCESS -0.4 (-2 - +2)
== END 2018-02-05 09:25 | disposition short-term general hospital (02) ==
LOC: ED 06:05
DX: I95.89 Other hypotension (principal); E86.1 Hypovolemia; A41.9 Sepsis, unspecified organism; R10.84 Generalized abdominal pain; N17.9 Acute kidney failure, unspecified
CPT/HCPCS: 36600; 71045; 80053; 80320; 82803; 83605; 84484; 85025; 93005; J1265; J2270; J2405; J7030; J7050; 96365; 96366; 96368; 96375; 99285; G0480; S1016

== ENCOUNTER 2018-09-05 09:12 | Emergency (ER) | payer OTHER ==
[2018-09-05] MEDS ORDERED: LACTATED RINGERS 1,000 ML IV ONE (09:24)
[2018-09-05] MEDS ORDERED: ONDANSETRON HCL/PF 4 MG/ 2ML VIAL IVP ONE (09:27)
--- NOTE | 2018-09-05 09:33 | ED Physician Documentation ---
General Adult - HISTORIAN Historian: patient - HPI Stated Complaint: nausea/vomiting Chief Complaint: General Adult Additional Information: Patient presents to ED with a 2 day history of nausea/vomiting since Tuesday afternoon. Patient states he picked up some boxed milk from the food pantry and had it with some pizza, then, 2 hours later he began to have vomiting. He has not been able to keep anything down since that time. Patient denies fever, chills, chest pain, shortness of breath. Admits to some dizziness. Hypotensive upon presentation. Onset: days ago (2) Timing: still present Severity: moderate - ROS CONST: denies: fever EYES/ENT: denies: problems with vision CVS/RESP: denies: chest pain, shortness of breath, cough GI/: vomiting, nausea. denies: abdominal pain, diarrhea MS/SKIN/LYMPH: denies: leg swelling NEURO/PSYCH: dizziness - PAST HX Past History: hypertension Other History: none, diabetes Type 2 Surgeries/Procedures: none Allergies/Adverse Reactions: Allergies Allergy/AdvReac Type Severity Reaction Status Date / Time norepinephrine Allergy Verified 09/05/18 09:40 Home Medications: Ambulatory Orders Medication Instructions Recorded Atorvastatin Calcium 20 mg PO D 01/21/18 Gabapentin 300 mg PO TID 01/21/18 Glimepiride [Amaryl] 4 mg PO AM 01/21/18 LORazepam [Ativan] 1 mg PO HS 01/21/18 Lisinopril/Hydrochlorothiazide 1 tab PO D 01/21/18 [Zestoretic] Quetiapine Fumarate [Seroquel] 1 tab PO HS 09/05/18 - SOCIAL HX Smoking History: cigarettes, greater than 1 pack/day Alcohol Use: none Drug Use: none - FAMILY HX Family History: No - VITAL SIGNS Vital Signs: Vital Signs Temp Pulse Resp BP Pulse Ox 83/43 02/05/18 09:25 - REVIEWED ASSESSMENTS Nursing Assessment Reviewed: Yes Vitals Reviewed: Yes Progress - Results/Orders Results/Orders: Influenza A/B- Negative - Progress Progress: 1015 Patient with GFR 9, discussed need for transfer to higher level of care. Patient requests Vera. Will give more fluid to stablize blood pressure. 1100 IV infiltrated. Will try to get another line. 1216 Discussed with [facility]. Waiting loss mitigation specialist back from Hospitalist 1229 Dr. Ladonna Wan refused direct admission due to BP, requests patient be sent through ER. 1238 Dr. Harris, ER physician will accept for transfer. 1240 Patient has not produced urine since in department. ED Results Lab/Radiology - Orders Orders: ED Orders Category Date Time Status Place IV Lock 1T Care 09/05/18 09:24 Ordered CBC/PLATELET/DIFF Routine Lab 09/05/18 Ordered CMP Routine Lab 09/05/18 Ordered LACTATED RINGERS @ 1,000 MLS/HR(1,000ml)(BOLUS) Med 09/05/18 09:24 Ordered Lactated Ringers [Ringers, Lactated] 1,000 ml IV Q1H Ondansetron HCl/Pf [Zofran] Med 09/05/18 09:27 Once 4 mg IVP NOW ONE General Adult Physical Exam - PHYSICAL EXAM GENERAL APPEARANCE: ill-appearing EENT: MERE NECK: supple RESPIRATORY: no resp distress, breath sounds normal CVS: reg rate & rhythm, heart sounds normal ABDOMEN: soft, non-tender BACK: normal inspection SKIN: pallor EXTREMITIES: non-tender, no edema NEURO: oriented X3, motor nml Discharge Clincal Impression: Acute renal failure Qualifiers: Acute renal failure type: unspecified Qualified Code(s): N17.9 - Acute kidney failure, unspecified Referrals: Abdirahman Philippe MD [Primary Care Provider] - 2 Days Disposition: [facility] Decision to Admit: [id number] Date of Decison to Admit: 09/05/18 Decision Time: 12:38
[2018-09-05 09:44] LABS: MEAN CORPUSCULAR HEMOGLOBIN 29.5 pg (28.0-34.0)
[2018-09-05 09:45] LABS: BASOPHILS % 1.1 (0.0-1.5); EOSINOPHILS % 2.1 % (0.0-6.8); MONOCYTES % 12.7 % (0.0-11.0); NEUTROPHILS # 9.7 # k/uL (1.4-7.7)
[2018-09-05] MEDS ORDERED: 0.9 % SODIUM CHLORIDE 1,000 ML IV ONE ×2 (10:27→13:04)
[2018-09-05 13:17] VITALS: BP 95/70
== END 2018-09-05 13:10 | disposition short-term general hospital (02) ==
LOC: ED 09:12
DX: N17.9 Acute kidney failure, unspecified (principal); Z72.0 Tobacco use
CPT/HCPCS: 36415; 80053; 85025; 87040; 87400; 96374; 99285; J2405; J7030; J7120; S1016

== ENCOUNTER 2019-01-16 23:22 | Emergency (ER) | payer OTHER ==
[2019-01-16] MEDS ORDERED: ONDANSETRON HCL/PF 4 MG/ 2ML VIAL IVP ONE (23:36)
[2019-01-16] MEDS ORDERED: 0.9 % SODIUM CHLORIDE 1,000 ML IV ONE (23:36)
--- NOTE | 2019-01-16 23:39 | ED Physician Documentation ---
General Adult - HISTORIAN Historian: patient - HPI Chief Complaint: General Adult Additional Information: Patient is a 43-year-old male that presents to the ER ambulatory with c/o nausea and vomiting today with weakness. He states that he developed cramps in his legs last night and frequent nausea with vomiting today- he has been sipping on sugary drinks today. Denies any fever or chills, no chest pain or SOA. Onset: days ago Timing: still present Severity: moderate Modifying Factors: Heat Exposure - ROS CONST: weakness EYES/ENT: none CVS/RESP: none GI/: vomiting, nausea MS/SKIN/LYMPH: back pain (chronic) NEURO/PSYCH: other (weakness) - PAST HX Past History: hypertension, renal disease Other History: diabetes Type 2 (with insulin) Surgeries/Procedures: other (right tib/fib) Immunizations: UTD Allergies/Adverse Reactions: Allergies Allergy/AdvReac Type Severity Reaction Status Date / Time norepinephrine Allergy Verified 01/17/19 00:27 Home Medications: Ambulatory Orders Medication Instructions Recorded RX: Atorvastatin Calcium 20 mg PO D 01/21/18 RX: Gabapentin 300 mg PO TID 01/21/18 RX: Glimepiride [Amaryl] 4 mg PO AM 01/21/18 RX: LORazepam [Ativan] 1 mg PO HS 01/21/18 RX: Lisinopril/Hydrochlorothiazide 1 tab PO D 01/21/18 [Zestoretic] Quetiapine Fumarate [Seroquel] 1 tab PO HS 09/05/18 Ondansetron HCl Rapdis [Zofran Odt] 4 mg PO Q6 PRN #15 tab 01/17/19 - SOCIAL HX Smoking History: less than 1 pack/day Alcohol Use: none Drug Use: none - FAMILY HX Family History: No - VITAL SIGNS Vital Signs: Vital Signs Temp Pulse Resp BP Pulse Ox 95/70 09/05/18 13:10 - REVIEWED ASSESSMENTS Nursing Assessment Reviewed: Yes Vitals Reviewed: Yes Progress - Progress Progress: 03:20 Patient feels much better after 2 liters of IVF- he has had no nausea or vomiting- pt feels ready to go home. ED Results Lab/Radiology - Orders Orders: ED Orders Category Date Time Status Continuous EKG monitoring Q30M Care 01/16/19 23:36 Ordered Continuous Pulse Oximetry Q30M Care 01/16/19 23:[address] IV Lock 1T Care 01/16/19 23:36 Ordered CBC/PLATELET/DIFF Routine Lab 01/16/19 23:36 Ordered CMP Routine Lab 01/16/19 23:36 Ordered NORMAL SALINE @ 1000 MLS/HR ( 1000ml BOLUS) Med 01/16/19 23:36 Ordered 0.9 % Sodium Chloride [Normal Saline] 1,000 ml IV Q1H Ondansetron HCl/Pf [Zofran] Med 01/16/19 23:36 Once 4 mg IVP NOW ONE General Adult Physical Exam - PHYSICAL EXAM GENERAL APPEARANCE: mild distress EENT: eye inspection normal, ENT inspection normal, pale conjunctivae, dry mucous membranes NECK: normal inspection, supple RESPIRATORY: breath sounds normal CVS: reg rate & rhythm, heart sounds normal ABDOMEN: soft, normal bowel sounds BACK: normal inspection SKIN: warm/dry, pallor EXTREMITIES: non-tender, normal range of motion NEURO: oriented X3, CN's nml as tested, motor nml, sensation nml, mood/affect nml, cognition normal Discharge Clincal Impression: Dehydration Prescriptions: Ondansetron HCl Rapdis [Zofran Odt] 4 mg PO Q6 PRN #15 tab PRN Reason: Nausea / Vomiting Referrals: Kiara Strickland MD [Primary Care Provider] - 2 Days Additional Instructions: Increase water intake Start off with a clear liquid diet, advance to full liquid, and then bland until nausea and vomiting subside Take Zofran 4 mg sublingual every 6 hours as needed for nausea Follow up with PCP next week for re-evaluation Condition: Good Disposition: 01 HOME, SELF-CARE Decision to Admit: NO Decision Time: 03:30
[2019-01-17] MEDS ORDERED: 0.9 % SODIUM CHLORIDE 1,000 ML IV ONE (00:19)
[2019-01-17 03:27] VITALS: BP 85/50
[2019-01-17 06:29] LABS: SEGMENTED NEUTROPHILS % 72 % (39-79)
== END 2019-01-17 01:35 | disposition home or self-care (01) ==
LOC: ED 23:22
DX: Z00.01 Encounter for general adult medical examination with abnormal findings (principal); E86.0 Dehydration
CPT/HCPCS: 80053; 85025; 96360; 96361; 99284; J2405; J7030; S1016

== ENCOUNTER 2019-01-17 07:47 | Emergency (ER) | payer OTHER ==
[2019-01-17] MEDS ORDERED: 0.9 % SODIUM CHLORIDE 2,000 ML IV ONE (07:56)
[2019-01-17] MEDS ORDERED: NALOXONE HCL 2 MG/2 ML IVP ONE (08:04)
[2019-01-17 08:24] LABS: BASOPHILS % 1 % (0-2); SEGMENTED NEUTROPHILS % 63 % (39-79)
[2019-01-17 08:38] LABS: eGFR (Non-African) 6
[2019-01-17] MEDS ORDERED: 0.9 % SODIUM CHLORIDE 1,000 ML IV ONE (08:51)
--- NOTE | 2019-01-17 09:03 | ED Physician Documentation ---
General Adult - HISTORIAN Historian: patient - HPI Stated Complaint: unresponsive to spouse Chief Complaint: General Adult Onset: minutes (30) Timing: still present Severity: mild Further Comments: yes (Per EMS called 911 due to the pt "fell on the bed and was too sleepy to wake up" He is stating "I am fine I just wanted to sleep" . He is mildy combative with any type of procedures. He is stating he is having abdominal pain "sometimes" all over. He was seen in ER last night for nausea and vomiting and did report he felt better after treatment. He states he took some meds to help him sleep. "All I want to do is sleep" . He states he wont have any shots or cath. "I can refuse those things" . He is not sure if he took his regular morning meds. He did not eat today at this time per his report. He states his woke him and all he wanted to do was sleep. He states he needs to pass gas or have a bowel movement. Denies any nausea. Denies any other complaints. He has not idea what his other medical history is although the EMS did bring a shoe box of meds with many bottles and actual pills with no bottles in the box.) - ROS CONST: recent illness EYES/ENT: denies: sore throat CVS/RESP: denies: chest pain, shortness of breath GI/: abdominal pain, problems urinating (after discussion he did state he has not been able to void in "days" ), nausea (last night ) MS/SKIN/LYMPH: none NEURO/PSYCH: headache (after Narcan partial dose ). denies: fainting, dizziness, tingling, numbness, difficulty walking, difficulty with speech, anxiety - PAST HX Past History: hypertension Other History: diabetes Type 2 Surgeries/Procedures: other (unknown) Immunizations: other (unknown ) Allergies/Adverse Reactions: Allergies Allergy/AdvReac Type Severity Reaction Status Date / Time norepinephrine Allergy Verified 01/17/19 00:27 Home Medications: Ambulatory Orders Medication Instructions Recorded Atorvastatin Calcium 20 mg PO D 01/21/18 Gabapentin 300 mg PO TID 01/21/18 Glimepiride [Amaryl] 4 mg PO AM 01/21/18 LORazepam [Ativan] 1 mg PO HS 01/21/18 Lisinopril/Hydrochlorothiazide 1 tab PO D 01/21/18 [Zestoretic] Quetiapine Fumarate [Seroquel] 1 tab PO HS 09/05/18 Ondansetron HCl Rapdis [Zofran Odt] 4 mg PO Q6 PRN #15 tab 01/17/19 - SOCIAL HX Smoking History: cigarettes Alcohol Use: other (unknown) Drug Use: marijuana - FAMILY HX Family History: No - VITAL SIGNS Vital Signs: Vital Signs Temp Pulse Resp BP Pulse Ox 85/50 01/17/19 03:21 - REVIEWED ASSESSMENTS Nursing Assessment Reviewed: Yes Vitals Reviewed: Yes ED Results Lab/Radiology - Lab Results Lab Results: Lab Results 01/17/19 01/17/19 01/17/19 08:00 08:00 08:00 WBC 15.70 K/ul H K/ul (4.00-12.00) RBC 4.43 M/ul M/ul (3.90-5.20) Hgb 13.3 g/dL g/dL (12.0-18.0) Hct 39.4 % % (37.0-53.0) MCV 89.0 fl fl (80.0-100.0) MCH 30.0 pg pg (28.0-34.0) MCHC 33.8 g/dL g/dL (30.0-36.0) RDW 13.9 % % (11.3-14.3) Plt Count 254 K/mm3 K/mm3 (130-400) Seg Neutrophils % 63 % % (39-79) Band Neutrophils % 2 % % (0-12) Lymphocytes % 24 % % (16-50) Monocytes % 9 % % (0-11) Eosinophils % 1 % % (0-7) Basophils % 1 % % (0-2) Plt Morphology Comment Normal (NORMAL) RBC Morph Comment Normal (NORMAL) Sodium 134 mmol/L L mmol/L (137-145) Potassium 3.9 mmol/L mmol/L (3.5-5.1) Chloride 89 mmol/L L mmol/L (98-107) Carbon Dioxide 23 mmol/L mmol/L (22-30) BUN 60 mg/dL H mg/dL (9-20) Creatinine 9.54 mg/dL H mg/dL (0.66-1.25) Est GFR ( Amer) 8 L (60 - ) Est GFR (Non-Af Amer) 6 L (60 - ) Glucose 315 mg/dL H mg/dL (74-106) Lactate 2.1 U/L U/L (0.7-2.1) Calcium 8.7 mg/dL mg/dL (8.4-10.2) Total Bilirubin 0.6 mg/dL mg/dL (0.2-1.3) AST 23 U/L U/L (15-46) ALT 18 U/L U/L (13-69) Alkaline Phosphatase 53 U/L U/L (38-126) CK-MB (CK-2) 4.5 ng/mL ng/mL (0.0-5.6) Troponin I < 0.012 ng/mL L ng/mL (0.012-0.034) Total Protein 7.3 g/dL g/dL (6.3-8.2) Albumin 4.4 g/dL g/dL (3.5-5.0) - Orders Orders: ED Orders Category Date Time Status Continuous EKG monitoring Q1H Care 01/17/19 08:13 Active CHEST 1VIEW [RAD] Stat Exams 01/17/19 Ordered CBC/PLATELET/DIFF Stat Lab 01/17/19 08:00 Completed CKMB Stat Lab 01/17/19 08:00 Completed CMP Stat Lab 01/17/19 08:00 Completed LACTATE Stat Lab 01/17/19 08:00 Completed TROPONIN I Stat Lab 01/17/19 08:00 Completed 0.9 % Sodium Chloride [Normal Saline] 1,000 ml Med 01/17/19 08:51 Discontinued IV .STK-MED 0.9 % Sodium Chloride [Normal Saline] 2,000 ml Med 01/17/19 07:56 Discontinued IV .STK-MED EKG WITH COMPARISON Stat Ther 01/17/19 Ordered General Adult Physical Exam - PHYSICAL EXAM GENERAL APPEARANCE: mild distress EENT: pharynx normal, dry mucous membranes, other (pupils pinpoint on arrival - post partial narcan dose more responsive pupil ) NECK: normal inspection RESPIRATORY: no resp distress, chest non-tender, wheezes CVS: reg rate & rhythm, heart sounds normal ABDOMEN: soft, normal bowel sounds, no distension, tenderness ("all over" ) BACK: normal inspection SKIN: warm/dry EXTREMITIES: non-tender NEURO: other (inital exam: he is awake to his name only. and does respond appropriately to questions. He has more conversation post partial narcan dose. 0900: Alert to person place and date. He is cooperative with procedures post explaination ) Discharge Clincal Impression: Acute kidney failure Qualifiers: Acute renal failure type: unspecified Qualified Code(s): N17.9 - Acute kidney failure, unspecified Obesity Qualifiers: Obesity type: unspecified obesity type Obesity classification: adult class 3 (BMI >= 40) Serious obesity comorbidity presence: with serious comorbidity Body mass index: BMI 45.0-49.9 Qualified Code(s): E66.01 - Morbid (severe) obesity due to excess calories; Z68.42 - Body mass index (BMI) 45.0-49.9, adult Hypotension Qualifiers: Hypotension type: unspecified hypotension type Qualified Code(s): I95.9 - Hypotension, unspecified Abdominal pain Qualifiers: Abdominal location: unspecified location Qualified Code(s): R10.9 - Unspecified abdominal pain Referrals: Kiara Strickland MD [Primary Care Provider] - 2 Days Comments: 0850: Dr Galo [facility] accepting due to weight for CT scan DG Condition: Serious Disposition: XFER [id number]-TRM HOSP Decision to Admit: NO Date of Decison to Admit: 01/17/19 Decision Time: 09:00
[2019-01-17 12:31] VITALS: BP 93/40
[2019-01-17 14:21] LABS: APPEARANCE,URINE CLOUDY (CLEAR); COLOR,URINE AMBER (YELLOW); OCCULT BLOOD,URINE 1+ (NEGATIVE); UROBILINOGEN URINE 0.2 Eu (0.2-1.0)
[2019-01-17 14:24] LABS: CANNABINOIDS NEGATIVE ng/mL (< 50)
[2019-01-17 14:25] LABS: METHYLENEDIOXYMETHAMPHETAMINE NEGATIVE ng/mL (<500)
--- NOTE | 2019-01-18 09:24 | Diagnostic Imaging Report ---
KYLE TAYLOR [facility] [address] [facility] [address] [place], [place]. [address] Report Submission Date: Jan 17, 2019 8:34:05 AM CDT Patient Study Name: NAYAN MORTENSEN Date: Jan 17, 2019 8:06:47 AM CDT Modality Type: DX Gender: M Description: CHEST 1VIEW : 75 Institution: [facility] Physician: KYLE TAYLOR Examination: Portable chest History: Evaluate lungs Comparison exam: None available for direct review. Findings: Portable views of the chest demonstrates a normal cardiac and mediastinal silhouette. Lung briones without focal infiltrate. No blunting of the costophrenic margins. Acromioclavicular degenerative changes. Impression: No acute pulmonary process. Electronically signed on Jan 17, 2019 8:34:05 AM CDT by: Alfred MULLER
== END 2019-01-17 09:15 | disposition short-term general hospital (02) ==
LOC: ED 07:47
DX: N17.9 Acute kidney failure, unspecified (principal)
CPT/HCPCS: 51702; 71045; 80053; 80377; 81002; 82553; 83605; 84484; 85025; 96374; 99283; 99284; J2310; G0481; J7030; S1016

== ENCOUNTER 2019-02-02 09:36 | Outpatient (CLI) | payer OTHER ==
[2019-02-02 10:02] LABS: A1C 8.6 % (<5.7)
[2019-02-02 10:17] LABS: SEGMENTED NEUTROPHILS % 58 % (39-79)
[2019-02-02 12:13] LABS: eGFR (Non-African) 44
[2019-02-02 12:28] LABS: HDL 30 mg/dL (>40)
== END 2019-02-02 09:38 ==
LOC: LAB 09:36
PROVIDERS: ATTEND Family Medicine
DX: E11.9 Type 2 diabetes mellitus without complications (principal); I10 Essential (primary) hypertension; E03.9 Hypothyroidism, unspecified
CPT/HCPCS: 36415; 80053; 80061; 83036; 84439; 84443; 85025

== ENCOUNTER 2019-07-12 12:23 | Outpatient (CLI) | payer OTHER ==
[2019-07-12 13:26] LABS: A1C 10.5 % (<5.7)
[2019-07-12 13:44] LABS: eGFR (Non-African) > 60
[2019-07-12 14:31] LABS: SEGMENTED NEUTROPHILS % 63 % (39-79)
[2019-07-12 14:32] LABS: BASOPHILS % 1 % (0-2)
== END 2019-07-12 12:28 ==
LOC: LAB 12:23
PROVIDERS: ATTEND Family Medicine
DX: Z11.3 Encounter for screening for infections with a predominantly sexual mode of transmission (principal); E11.9 Type 2 diabetes mellitus without complications
CPT/HCPCS: 36415; 80053; 83036; 85025; 86703; 86780; 87491; 87591